=== PATIENT | female | born 1985 | race African-American/Black ===

== ENCOUNTER 2022-06-15 05:11 | Inpatient (IN) | payer MEDICAID ==
[~2022-06-15] VITALS: Ht 170.2 cm; Wt 97.5 kg
[2022-06-15] MEDS ORDERED: METHYLERGONOVINE MALEATE 0.2 MG/ML IM PRN (05:45)
[2022-06-15] MEDS ORDERED: LACTATED RINGERS 1,000 ML IV SCH (05:45)
[2022-06-15] MEDS ORDERED: BUTORPHANOL TARTRATE 2 MG/ML VIAL IV PRN (05:45)
[2022-06-15] MEDS ORDERED: LIDOCAINE HCL 1% 20ML VIAL (Pyxis) INJ INFIL SCH (05:45)
[2022-06-15] MEDS ORDERED: MISOPROSTOL 100MCG TABLET VG SCH (05:45)
[2022-06-15] MEDS ORDERED: CARBOPROST TROMETHAMINE 250 MCG/ML AMPUL IM PRN (05:45)
[2022-06-15] MEDS ORDERED: OXYTOCIN 30 UNITS/500ML NS PMX 500 ML IV SCH ×2 (05:45→17:00)
[2022-06-15] MEDS ORDERED: ASPI-1497 PO (05:50)
[2022-06-15] MEDS ORDERED: PRENATAL VITAMINS (05:50)
[2022-06-15] MEDS ORDERED: PENICILLIN G POTASSIUM 5 MMU in DEXT 5% WATER 100 ML IV NR (06:00)
[2022-06-15 06:06] LABS: BASOPHILS % 0.4 % (0.0-2.0); EOSINOPHILS % 1.2 % (0.0-5.0); HEMATOCRIT. 31.3 % (36.0-48.0); HEMOGLOBIN. 9.9 g/dL (12.0-16.0); MEAN CORPUSCULAR HEMOGLOBIN 26.7 pg (28.0-32.0); MEAN CORPUSCULAR VOLUME 84.1 fL (81.0-99.0); MEAN PLATELET VOLUME 7.9 fl (7.4-10.4); MONOCYTES % 8.5 % (2.0-8.0); NEUTROPHILS % 74.9 % (40.0-76.0); PLATELET 392 x1000/uL (130-400); RED BLOOD CELL COUNT 3.72 mill/uL (4.2-5.4); RED CELL DISTRIBUTION WIDTH 15.8 % (11.6-14.6)
[2022-06-15 06:06] LABS: CLARITY URINE CLOUDY (CLEAR); COLOR URINE YELLOW (YELLOW); KETONES URINE NEGATIVE (NEGATIVE); LEUKOCYTE ESTERASE URINE 2+ (NEGATIVE); NITRITE URINE NEGATIVE (NEGATIVE); OCCULT BLOOD URINE 1+ (NEGATIVE); PH URINE 6.5 (4.5-8.0); PROTEIN URINE TRACE (NEGATIVE); SPECIFIC GRAVITY URINE 1.013 (1.005-1.030); UROBILINOGEN URINE 0.2 E.U./dL (0.2-1.0)
[2022-06-15 06:18] LABS: INR 0.9; PARTIAL THROMBOPLASTIN TIME 26.7 sec (23.4-31.0)
[2022-06-15 06:36] LABS: CHLORIDE 111 mEq/L (98-107)
[2022-06-15 06:40] LABS: *AMPHETAMINES SCREEN URINE NEGATIVE (NEGATIVE); *BARBITURATES SCREEN URINE NEGATIVE (NEGATIVE); *BENZODIAZEPINES SCREEN URINE NEGATIVE (NEGATIVE); *COCAINE SCREEN URINE NEGATIVE (NEGATIVE); CANNABINOID URINE SCREEN NEGATIVE (NEGATIVE); METHADONE URINE SCREEN NEGATIVE (NEGATIVE); OPIATES URINE SCREEN NEGATIVE (NEGATIVE); PHENCYCLIDINE URINE SCREEN NEGATIVE (NEGATIVE)
[2022-06-15 06:54] LABS: HEPATITIS B SURFACE ANTIGEN NEGATIVE
[2022-06-15] MEDS ORDERED: ROPIVACAINE HCL/PF EPIDURAL 200 ML EPI SCH (07:00)
[2022-06-15] MEDS ORDERED: PENICILLIN G POTASSIUM 2.5 MMU in DEXTROSE 5% WATER 50 ML IV SCH (10:00)
[2022-06-15] MEDS ORDERED: LIDOCAINE HCL 2%/EPINEPHRINE 1:100,000 20 ML VIAL INFIL ONE (10:47)
[2022-06-15] MEDS ORDERED: GLYCERIN/WITCH HAZEL LEAF MEDICATED PAD TOP PRN (17:00)
[2022-06-15] MEDS ORDERED: BENZOCAINE/LANOLIN/ALOE VERA SPRAY TOP PRN (17:00)
[2022-06-15] MEDS ORDERED: RHO(D) IMMUNE GLOBULIN 300 MCG/SYR IM PRN (17:00)
[2022-06-15] MEDS ORDERED: IBUPROFEN 400MG TABLET PO PRN (17:00)
[2022-06-15] MEDS ORDERED: DIPHENHYDRAMINE 25MG CAPSULE PO PRN (17:00)
[2022-06-15] MEDS ORDERED: HEMORRHOIDAL SUPP PR PRN (17:00)
[2022-06-15] MEDS ORDERED: LANOLIN OINT 7GM TUBE TOP PRN (17:00)
[2022-06-15 18:45] VITALS: BP 131/85
[2022-06-15 19:13] VITALS: BP 131/85
[2022-06-15] MEDS: ACETAMINOPHEN WITH CODEINE 300/30MG TABLET PO PRN (19:32)
[2022-06-15] MEDS: IBUPROFEN 800MG TABLET PO PRN (19:38)
[2022-06-15 21:00] VITALS: BP 140/80
[2022-06-15] MEDS: MAGNESIUM/ALUMINUM HYDROXIDE/SIMETHICONE 30ML UDC PO SCH (21:00)
[2022-06-15] MEDS: DOCUSATE SODIUM 100MG CAPSULE PO SCH (21:00)
[2022-06-15 23:00] VITALS: BP 131/82
[2022-06-16] MEDS: ACETAMINOPHEN WITH CODEINE 300/30MG TABLET PO PRN (00:52)
[2022-06-16 04:00] VITALS: BP 108/61
[2022-06-16] MEDS: IBUPROFEN 800MG TABLET PO PRN (04:40)
[2022-06-16 06:54] LABS: BASOPHILS % 0.3 % (0.0-2.0); EOSINOPHILS % 1.3 % (0.0-5.0); HEMATOCRIT. 26.8 % (36.0-48.0); HEMOGLOBIN. 8.8 g/dL (12.0-16.0); LYMPHOCYTES % 12.2 % (20.0-50.0); MEAN CORPUSCULAR HEMOGLOBIN 27.6 pg (28.0-32.0); MEAN CORPUSCULAR VOLUME 84.1 fL (81.0-99.0); MONOCYTES % 9.9 % (2.0-8.0); NEUTROPHILS % 76.3 % (40.0-76.0); PLATELET 303 x1000/uL (130-400); RED BLOOD CELL COUNT 3.19 mill/uL (4.2-5.4); RED CELL DISTRIBUTION WIDTH 15.8 % (11.6-14.6)
[2022-06-16 08:00] VITALS: BP 103/59
[2022-06-16] MEDS: MAGNESIUM/ALUMINUM HYDROXIDE/SIMETHICONE 30ML UDC PO SCH ×4 (08:16→21:07)
[2022-06-16] MEDS: PRENATAL VIT/FE FUMARATE/FA TABLET PO SCH (08:16)
[2022-06-16] MEDS: FERROUS SULFATE 325MG TABLET PO SCH ×3 (08:16→17:30)
[2022-06-16 16:00] VITALS: BP 105/63
[2022-06-16 19:30] VITALS: BP 122/76
[2022-06-16] MEDS: DOCUSATE SODIUM 100MG CAPSULE PO SCH (21:07)
[2022-06-17 04:00] VITALS: BP 121/72
[2022-06-17] MEDS ORDERED: FERR-63 PO (07:06)
[2022-06-17] MEDS ORDERED: IBUP-2030 PO (07:06)
[2022-06-17 07:30] VITALS: BP 114/70
[2022-06-17] MEDS: FERROUS SULFATE 325MG TABLET PO SCH (08:11)
[2022-06-17] MEDS: PRENATAL VIT/FE FUMARATE/FA TABLET PO SCH (08:11)
[2022-06-17] MEDS: MAGNESIUM/ALUMINUM HYDROXIDE/SIMETHICONE 30ML UDC PO SCH (08:12)
== END 2022-06-17 15:09 | disposition home or self-care (01) | DRG 560 ==
LOC: 8 EST LDRP 05:11 → UNDOADMOB 05:11 → EDBD 05:11 → PREOBSVTOIN 07:57 → 8 EST LDRP 07:59 → 8EST 17:40
PROVIDERS: ADMIT Obstetrics & Gynecology; ATTEND Obstetrics & Gynecology
PROC: 10E0XZZ Delivery of Products of Conception, External Approach (ICD-10-PCS; principal; 2022-06-15)
PROC: 0KQM0ZZ Repair Perineum Muscle, Open Approach (ICD-10-PCS; 2022-06-15)
PROC: 3E0R3BZ Introduction of Anesthetic Agent into Spinal Canal, Percutaneous Approach (ICD-10-PCS; 2022-06-15)
PROC: 00HU33Z Insertion of Infusion Device into Spinal Canal, Percutaneous Approach (ICD-10-PCS; 2022-06-15)
DX: O34.33 Maternal care for cervical incompetence, third trimester (principal); Z37.0 Single live birth; O70.1 Second degree perineal laceration during delivery; O99.02 Anemia complicating childbirth; Z20.822 Contact with and (suspected) exposure to COVID-19; Z3A.38 38 weeks gestation of pregnancy; Z88.8 Allergy status to other drugs, medicaments and biological substances
CPT/HCPCS: 36415; 76805; 76818; 80053; 80305; 81003; 84550; 85025; 86592; 86703; 86762; 86850; 86900; 87340; 87426; 99281; J0595; J2540; J3490; J7060; J7120; A4315; J2590